=== PATIENT | male | born 1955 | race Two or more races ===

== ENCOUNTER → 2021-07-04 | Outpatient (CLI) | payer MEDICARE, OTHER | END | disposition home or self-care (01) | LOC: MSC 11:00 | PROVIDERS: ATTEND Anesthesiology | DX: G89.4 Chronic pain syndrome (principal); M54.16 Radiculopathy, lumbar region; M62.830 Muscle spasm of back; F11.20 Opioid dependence, uncomplicated ==

== ENCOUNTER 2021-08-01 09:04 | Outpatient (CLI) | payer MEDICARE, OTHER | END 2021-08-01 23:59 | disposition home or self-care (01) | LOC: MSC 09:04 | PROVIDERS: ATTEND Anesthesiology | DX: M54.16 Radiculopathy, lumbar region (principal); M62.830 Muscle spasm of back; G89.4 Chronic pain syndrome; F11.20 Opioid dependence, uncomplicated ==

== ENCOUNTER 2021-09-01 09:50 | Outpatient (CLI) | payer MEDICARE, OTHER | END 2021-09-01 23:59 | disposition home or self-care (01) | LOC: MRI 09:50 | PROVIDERS: ATTEND Anesthesiology | DX: M47.27 Other spondylosis with radiculopathy, lumbosacral region (principal); M51.17 Intervertebral disc disorders with radiculopathy, lumbosacral region; M43.17 Spondylolisthesis, lumbosacral region; M48.07 Spinal stenosis, lumbosacral region; M25.78 Osteophyte, vertebrae | CPT/HCPCS: 72148-TC ==

== ENCOUNTER 2021-09-12 09:11 | Outpatient (CLI) | payer MEDICARE, OTHER | END 2021-09-12 23:59 | disposition home or self-care (01) | LOC: MSC 09:11 | PROVIDERS: ATTEND Anesthesiology | DX: G89.4 Chronic pain syndrome (principal); M54.16 Radiculopathy, lumbar region; M62.830 Muscle spasm of back; F11.20 Opioid dependence, uncomplicated; Z76.0 Encounter for issue of repeat prescription ==

== ENCOUNTER 2021-10-10 09:20 | Outpatient (CLI) | payer MEDICARE, OTHER | END 2021-10-10 23:59 | disposition home or self-care (01) | LOC: MSC 09:20 | PROVIDERS: ATTEND Anesthesiology | DX: M54.16 Radiculopathy, lumbar region (principal); M62.830 Muscle spasm of back; G89.4 Chronic pain syndrome; F11.20 Opioid dependence, uncomplicated; Z76.0 Encounter for issue of repeat prescription ==

== ENCOUNTER 2021-11-07 10:00 | Outpatient (CLI) | payer MEDICARE, OTHER | END 2021-11-07 23:59 | disposition home or self-care (01) | LOC: MSC 10:00 | PROVIDERS: ATTEND Anesthesiology | DX: M54.16 Radiculopathy, lumbar region (principal); M62.830 Muscle spasm of back; G89.4 Chronic pain syndrome; F11.20 Opioid dependence, uncomplicated; Z79.1 Long term (current) use of non-steroidal anti-inflammatories (NSAID) ==

== ENCOUNTER 2021-12-13 08:50 | Outpatient (CLI) | payer MEDICARE, OTHER | END 2021-12-13 23:59 | disposition home or self-care (01) | LOC: MSC 08:50 | PROVIDERS: ATTEND Anesthesiology | DX: G89.4 Chronic pain syndrome (principal); M54.16 Radiculopathy, lumbar region; M62.830 Muscle spasm of back; F11.20 Opioid dependence, uncomplicated; Z79.1 Long term (current) use of non-steroidal anti-inflammatories (NSAID) ==

== ENCOUNTER 2022-01-09 09:15 | Outpatient (CLI) | payer MEDICARE, OTHER | END 2022-01-09 23:59 | disposition home or self-care (01) | LOC: MSC 09:15 | PROVIDERS: ATTEND Anesthesiology | DX: M54.16 Radiculopathy, lumbar region (principal); M62.830 Muscle spasm of back; G89.4 Chronic pain syndrome; F11.20 Opioid dependence, uncomplicated; Z76.0 Encounter for issue of repeat prescription; Z79.1 Long term (current) use of non-steroidal anti-inflammatories (NSAID) ==

== ENCOUNTER 2022-02-06 09:07 | Outpatient (CLI) | payer MEDICARE, OTHER | END 2022-02-06 23:59 | disposition home or self-care (01) | LOC: MSC 09:07 | PROVIDERS: ATTEND Internal Medicine | DX: M54.16 Radiculopathy, lumbar region (principal); M62.830 Muscle spasm of back; G89.4 Chronic pain syndrome; F11.20 Opioid dependence, uncomplicated; Z76.0 Encounter for issue of repeat prescription; Z79.1 Long term (current) use of non-steroidal anti-inflammatories (NSAID) ==

== ENCOUNTER 2022-03-06 09:11 | Outpatient (CLI) | payer MEDICARE, OTHER | END 2022-03-06 23:59 | disposition home or self-care (01) | LOC: MSC 09:11 | PROVIDERS: ATTEND Anesthesiology | DX: M54.16 Radiculopathy, lumbar region (principal); M62.830 Muscle spasm of back; G89.4 Chronic pain syndrome; F11.20 Opioid dependence, uncomplicated ==

== ENCOUNTER 2022-04-03 08:35 | Outpatient (CLI) | payer MEDICARE, OTHER | END 2022-04-03 23:59 | disposition home or self-care (01) | LOC: MSC 08:35 | PROVIDERS: ATTEND Anesthesiology | DX: G89.4 Chronic pain syndrome (principal); M54.16 Radiculopathy, lumbar region; M62.830 Muscle spasm of back; F11.20 Opioid dependence, uncomplicated; Z76.0 Encounter for issue of repeat prescription ==

== ENCOUNTER → 2022-05-08 | Outpatient (CLI) | payer MEDICARE, OTHER | END | disposition home or self-care (01) | LOC: MSC 10:30 | PROVIDERS: ATTEND Anesthesiology | DX: G89.4 Chronic pain syndrome (principal); M54.16 Radiculopathy, lumbar region; M62.830 Muscle spasm of back; F11.20 Opioid dependence, uncomplicated; Z76.0 Encounter for issue of repeat prescription ==

== ENCOUNTER 2022-06-05 11:25 | Outpatient (CLI) | payer MEDICARE, OTHER | END 2022-06-05 23:59 | disposition home or self-care (01) | LOC: MSC 11:25 | PROVIDERS: ATTEND Anesthesiology | DX: G89.4 Chronic pain syndrome (principal); M54.16 Radiculopathy, lumbar region; M62.830 Muscle spasm of back; F11.20 Opioid dependence, uncomplicated; Z76.0 Encounter for issue of repeat prescription ==

== ENCOUNTER 2022-07-10 11:45 | Outpatient (CLI) | payer MEDICARE, OTHER | END 2022-07-10 23:59 | disposition home or self-care (01) | LOC: MSC 11:45 | PROVIDERS: ATTEND Anesthesiology | DX: G89.4 Chronic pain syndrome (principal); M54.16 Radiculopathy, lumbar region; M62.830 Muscle spasm of back; F11.20 Opioid dependence, uncomplicated ==

== ENCOUNTER 2022-08-07 11:30 | Outpatient (CLI) | payer MEDICARE, OTHER | END 2022-08-07 23:59 | disposition home or self-care (01) | LOC: MSC 11:30 | PROVIDERS: ATTEND Anesthesiology | DX: G89.4 Chronic pain syndrome (principal); M54.16 Radiculopathy, lumbar region; M62.830 Muscle spasm of back; F11.20 Opioid dependence, uncomplicated ==

== ENCOUNTER 2022-09-11 11:30 | Outpatient (CLI) | payer MEDICARE, OTHER | END 2022-09-11 23:59 | disposition home or self-care (01) | LOC: MSC 11:30 | PROVIDERS: ATTEND Anesthesiology | DX: G89.4 Chronic pain syndrome (principal); M54.16 Radiculopathy, lumbar region; M62.830 Muscle spasm of back; F11.20 Opioid dependence, uncomplicated ==

== ENCOUNTER 2022-10-16 09:34 | Outpatient (CLI) | payer MEDICARE, OTHER | END 2022-10-16 23:59 | disposition home or self-care (01) | LOC: MSC 09:34 | PROVIDERS: ATTEND Anesthesiology | DX: G89.4 Chronic pain syndrome (principal); M54.16 Radiculopathy, lumbar region; M62.830 Muscle spasm of back; F11.20 Opioid dependence, uncomplicated; Z79.1 Long term (current) use of non-steroidal anti-inflammatories (NSAID) ==

== ENCOUNTER 2022-11-06 11:14 | Outpatient (CLI) | payer MEDICARE, OTHER | END 2022-11-06 23:59 | disposition home or self-care (01) | LOC: MSC 11:14 | PROVIDERS: ATTEND Anesthesiology | DX: G89.4 Chronic pain syndrome (principal); M54.16 Radiculopathy, lumbar region; M62.830 Muscle spasm of back; F11.20 Opioid dependence, uncomplicated ==

== ENCOUNTER 2022-12-18 10:33 | Outpatient (CLI) | payer MEDICARE, OTHER | END 2022-12-18 23:59 | disposition home or self-care (01) | LOC: MSC 10:33 | PROVIDERS: ATTEND Anesthesiology | DX: G89.4 Chronic pain syndrome (principal); M54.16 Radiculopathy, lumbar region; M62.830 Muscle spasm of back; F11.20 Opioid dependence, uncomplicated ==

== ENCOUNTER 2023-01-15 09:35 | Outpatient (CLI) | payer MEDICARE, OTHER | END 2023-01-15 23:59 | disposition home or self-care (01) | LOC: MSC 09:35 | PROVIDERS: ATTEND Anesthesiology | DX: G89.4 Chronic pain syndrome (principal); M54.16 Radiculopathy, lumbar region; M62.830 Muscle spasm of back; F11.20 Opioid dependence, uncomplicated ==

== ENCOUNTER 2023-04-23 09:18 | Outpatient (CLI) | payer MEDICARE, OTHER | END 2023-04-23 23:59 | disposition home or self-care (01) | LOC: MSC 09:18 | PROVIDERS: ATTEND Anesthesiology | DX: G89.4 Chronic pain syndrome (principal); M54.16 Radiculopathy, lumbar region; M62.830 Muscle spasm of back; F11.20 Opioid dependence, uncomplicated ==

== ENCOUNTER 2024-04-28 11:39 | Outpatient (CLI) | payer MEDICARE, OTHER | END 2024-04-28 23:59 | disposition home or self-care (01) | LOC: MSC 11:39 | PROVIDERS: ATTEND Anesthesiology | DX: G89.4 Chronic pain syndrome (principal); M54.16 Radiculopathy, lumbar region; M25.512 Pain in left shoulder; M62.830 Muscle spasm of back; F11.20 Opioid dependence, uncomplicated ==